=== PATIENT | female | born 1985 | race Two or more races ===

== ENCOUNTER 2016-08-31 10:37 | Emergency (ER) | payer MEDICAID, OTHER ==
[2016-08-31] MEDS ORDERED: SKIN ADHESIVE (DERMABOND) 1 EACH TP ONE ×2 (10:52→11:00)
--- NOTE | 2016-08-31 10:53 | UCPHY ---
H & P Patient Type: New Time Seen by Provider: 08/31/16 10:47 HPI/ROS: Chief complaint: Hand laceration HPI: 31-year-old woman was attempting to remove a pit from a avocado when it slipped and she sustained a laceration of the web space between her 2nd and 3rd digit of her left hand. This happened about 30 minutes prior to arrival. No numbness or tingling. No difficulty flexing or extending. She is up-to-date on her immunizations. ROS: 10 point Review of Systems is negative except as noted in the HPI. Past medical history: None Medications: None Allergies: None Social history: Nonsmoking Physical exam: General: Awake, alert, no acute distress Hand: She has a approximately 7 mm laceration to the palmar web space of her left hand between her 2nd and 3rd digits. There is no tendon involvement. She has full flexion extension strength. Sensations intact medial laterally. She has no tenderness she has tenderness. Skin: No rash - Family History Significant Family History: No pertinent family hx Constitutional: Initial Vital Signs Temperature (C) 36.6 C 08/31/16 10:54 Heart Rate 77 08/31/16 10:54 Respiratory Rate 16 08/31/16 10:54 Blood Pressure 121/64 H 08/31/16 10:54 O2 Sat (%) 95 08/31/16 10:54 O2 Delivery Mode Room Air Allergies/Adverse Reactions: No Known Allergies Allergy (Unverified 08/31/16 10:54) Home Medications: Medication Instructions Recorded NK [No Known Home Meds] 08/31/16 Medical Decision Making Procedures: Procedure: Laceration repair with skin glue. The 7 mm laceration on the left hand. The wound was cleaned and explored to its base with a gloved finger. There were no deep structures involved. The wound was repaired with tissue adhesive. The procedure was performed by myself. - Data Points Medications Given: Discontinued Medications Diphtheria/Tetanus/Acell Pertussis (Boostrix) 0.5 ml IM .ONCE ONE Stop: 08/31/16 11:29 Last Admin: 08/31/16 11:30 Dose: 0.5 ml Octyl Cyanoacrylate (Dermabond) 1 each TP EDNOW ONE Stop: 08/31/16 11:01 Last Admin: 08/31/16 11:00 Dose: 1 each Departure - Departure Disposition: Home, Routine, Self-Care Clinical Impression: Laceration Condition: Good Instructions: Skin Adhesive Care (ED) Additional Instructions: Follow up with primary care physician as needed. Return Urgent Care for increasing redness, discharge from the wound, fevers, chills, or any other concerns. Referrals: Kylah Moran MD [[facility] [place] Primary Care Provider] - As per Instructions - PQRS PQRS Measurement: na
[2016-08-31 10:57] VITALS: BP 121/64; PULSE 77; RESP 16; TEMP 97.9; O2SAT 95
[2016-08-31] MEDS ORDERED: TDAP ADULT 0.5 ML INJ (BOOSTRIX) IM ONE (11:28)
== END 2016-08-31 11:32 | disposition home or self-care (01) ==
LOC: CED 10:37
PROC: 0HQGXZZ Repair Left Hand Skin, External Approach (ICD-10-PCS; principal; 2016-08-31)
DX: S61.412A Laceration without foreign body of left hand, initial encounter (principal); W26.0XXA Contact with knife, initial encounter; Y93.G9 Activity, other involving cooking and grilling; Y92.019 Unspecified place in single-family (private) house as the place of occurrence of the external cause; Y99.8 Other external cause status
CPT/HCPCS: 12001-PO; 99202-PO; G0463-PO